=== PATIENT | male | born 1955 | race Caucasian/White ===

== ENCOUNTER 2017-06-23 09:53 | Emergency (ER) | payer OTHER ==
[~2017-06-23] VITALS: Ht 193 cm; Wt 125.5 kg
[~2017-06-23 09:53] MED LIST: ADVAIR 250/501 DISK IH; ASPIR 8181 M1 PO; ASPIR-TRIN325 M1 PO; ATORVASTATIN CA80 MG PO; CIPRO500 MG PO; DYAZIDE, MA1 CAPSULE PO; FENOFIBRATE160 M1 PO; FLAGYL500 MG PO; FLEXERIL10 MG PO; FUROSEMIDE40 MG PO; ISOSORBIDE MONO30 MG PO; LIDOCAINE700 MG TD; LISINOPRIL40 MG PO; LORATADINE10 M2 PO; METOPROLOL TART50 MG PO; MONTELUKAST SOD10 MG PO; NAPROXEN500 MG PO; NIFEDIPINE ER90 MG PO; OSTEO BI-FLEX1 EAC1 PO; PERCOCET 5/31 TABLET PO; TRAMADOL HCL50 MG PO; ULTRAM50 MG PO; VALACYCLOVIR500 MG PO; VENTOLIN HFA18 GM IH; VIAGRA100 MG PO; XANAX0.25 MG PO; ZOFRAN4 MG PO; ZOLPIDEM TARTRA10 MG PO
[2017-06-23 10:30] LABS: HEMATOCRIT 43.9 % (38.0-50.0); HEMOGLOBIN 14.9 G/DL (12.5-16.6); MCH 34.1 PG (29.0-34.0); MCHC 33.9 G/DL (30.0-36.0); MCV 100.5 FL (86-99); PLATELET COUNT 241 K/uL (156-360); RBC DIS.WIDTH-CV 14.3 % (11.8-14.6); RBC DIS.WIDTH-SD 53.8 % (39-53); RED BLOOD COUNT 4.37 M/uL (4.00-5.50); WHITE BLOOD COUNT 4.7 K/uL (4.1-10.2)
[2017-06-23 10:41] LABS: CHLORIDE 108 mEq/L (99-109); POTASSIUM 5.8 mEq/L (3.7-5.4); SODIUM 140 mEq/L (136-147)
[2017-06-23 10:43] LABS: GLUCOSE 97 mg/dL (70-99)
[2017-06-23 10:47] LABS: CREATININE 1.2 mg/dL (0.6-1.3); GFR ESTIMATE (CALCULATED) > 59 mL/min/ (58.99-99999)
[2017-06-23 10:48] LABS: UREA NITROGEN (BUN) 21 mg/dL (9-23)
[2017-06-23 10:51] LABS: TROP-I INTERPRETATION NEGATIVE; TROPONIN-I < 0.01 ng/mL (0.0-0.30)
[2017-06-23 13:37] LABS: CHLORIDE 110 mEq/L (99-109); POTASSIUM 5.5 mEq/L (3.7-5.4); SODIUM 141 mEq/L (136-147)
[2017-06-23 13:39] LABS: GLUCOSE 74 mg/dL (70-99)
[2017-06-23 13:43] LABS: CREATININE 1.1 mg/dL (0.6-1.3); GFR ESTIMATE (CALCULATED) > 59 mL/min/ (58.99-99999)
[2017-06-23 13:44] LABS: UREA NITROGEN (BUN) 19 mg/dL (9-23)
[2017-06-23 13:49] LABS: TROP-I INTERPRETATION NEGATIVE; TROPONIN-I < 0.01 ng/mL (0.0-0.30)
[2017-06-23 15:08] VITALS: BP 121/66
== END 2017-06-23 15:10 | disposition home or self-care (01) ==
LOC: EME 09:53
PROVIDERS: Emergency Medicine
DX: R07.89 Other chest pain (principal); I25.10 Atherosclerotic heart disease of native coronary artery without angina pectoris; J45.909 Unspecified asthma, uncomplicated; I10 Essential (primary) hypertension; F32.9 Major depressive disorder, single episode, unspecified; Z87.891 Personal history of nicotine dependence; Z79.82 Long term (current) use of aspirin; Z88.8 Allergy status to other drugs, medicaments and biological substances
CPT/HCPCS: 71046; 80048; 80048 91; 84484; 85027; 93005; 99281; 99284

== ENCOUNTER → 2017-07-10 | Outpatient (CLI) | payer OTHER | END | disposition home or self-care (01) | LOC: RAD 11:31 | DX: R06.02 Shortness of breath (principal) | CPT/HCPCS: 71275 ==